=== PATIENT | male | born 1955 | race Caucasian/White ===

== ENCOUNTER → 2024-06-16 | Outpatient (CLI) | payer MEDICARE | LOC: COL.RAD 11:20 | DX: Z12.2 Encounter for screening for malignant neoplasm of respiratory organs (principal); Z13.6 Encounter for screening for cardiovascular disorders; J43.9 Emphysema, unspecified; J84.10 Pulmonary fibrosis, unspecified; I70.0 Atherosclerosis of aorta; I77.819 Aortic ectasia, unspecified site ==

== ENCOUNTER 2024-06-18 06:51 | Day surgery (SDC) | payer MEDICARE ==
[~2024-06-18] VITALS: Ht 181.6 cm; Wt 53.4 kg
[~2024-06-18 06:51] MED LIST: LR 1,000 ML IV SCH; Ondansetron 4 MG/2 ML VIAL IV PRN
[2024-06-18 07:16] VITALS: BP 160/80; PULSE 85; TEMP 98
--- NOTE | 2024-06-18 07:19 | NUR ---
PATIENT AMBULATORY TO BAY 3. PATIENT CARRYING 20 OUNCE BOTTLE PEPSI AND STATES THAT HE LAST HAD DRINK OF IT AT 0645. ADMITTED TO EATING [id number]/2024 AT 1130. STATES THAT STOOLS ARE CLEAR AND LIQUID. VAISHALI GARCIA ARCHITECTURAL DESIGN LECTURER NOTIFIED AND WILL DELAY CASE UNTIL 0900. DR. POSEY HERE AND INFORMED OF THIS.
[2024-06-18] MEDS ORDERED: Lidocaine PF 2% (20 MG/ML) 5 ML VIAL ONE (08:48)
[2024-06-18 11:00] VITALS: BP 139/90; PULSE 68; TEMP 97.5
[2024-06-18 11:15] VITALS: BP 123/83; PULSE 56
[2024-06-18 11:30] VITALS: BP 174/90; PULSE 60
[2024-06-18 11:45] VITALS: BP 148/82; PULSE 60
--- NOTE | 2024-06-18 12:15 | NUR ---
1100 RETURNS TO ROOM 3 PER CART. AWAKE, ALERT. RESP UNLABORED. AMBULATES TO RECLINER WITH STANDBY ASSIST. DENIES NAUSEA OR ABD PAIN. VITAL SIGNS OBTAINED. CALL LIGHT AT SIDE. 1115 TOLERATES PO SODA WITHOUT NAUSEA 1130 TOLEREATES PO PUDDING. DENIES NAUSEA OR ABD PAIN. AWAITS VISIT FROM 1140 DISCHARGE INSTRUCTIONS REVIEWED. PATIENT VERBALIZES UNDERSTANDING. COPY PROVIDED IN DISCHARGE FOLDER 1150 DR. POSEY HERE TO SEE PATIENT 1205 DRESSES SELF, THEN AMBULATES TO BATHROOM WITH STANDBY ASSISTANCE
== END 2024-06-18 12:15 | disposition home or self-care (01) ==
LOC: SDCO 06:51
DX: Z12.11 Encounter for screening for malignant neoplasm of colon (principal); D12.0 Benign neoplasm of cecum; D12.2 Benign neoplasm of ascending colon; D12.3 Benign neoplasm of transverse colon; D12.4 Benign neoplasm of descending colon; D12.5 Benign neoplasm of sigmoid colon; K57.30 Diverticulosis of large intestine without perforation or abscess without bleeding; K64.8 Other hemorrhoids; I10 Essential (primary) hypertension; F17.210 Nicotine dependence, cigarettes, uncomplicated
CPT/HCPCS: J2704; J7120